=== PATIENT | male | born 1950 | race Caucasian/White ===

== ENCOUNTER → 2021-07-29 11:12 | Outpatient (CLI) | payer BC, SELFPAY ==
[2021-07-29 12:26] LABS: Hemoglobin A1C% w Est Avg Glu 5.5 % (4.0-6.0)
[2021-07-29 12:41] LABS: Alanine Aminotransferase 25 IU/L (<50); Albumin 4.2 g/dL (3.5-5.0); Albumin Globulin Ratio 1.6 (1.0-2.8); Alkaline Phosphatase 48 U/L (38-126); Aspartate Aminotransferase 30 IU/L (17-59); BUN Creatinine Ratio 17.2 (6-22); Bilirubin Total 0.5 mg/dL (0.2-1.3); Blood Urea Nitrogen 20 mg/dL (9-20); Calcium 10.5 mg/dL (8.4-10.2); Carbon Dioxide 22 mmol/L (22-32); Chloride 104 mmol/L (98-107); Cholesterol 275 mg/dL (140-199); Estimated Glomerular Filt Rate > 60.0 mL/min (>60); Globulin 2.7 g/dL (1.7-4.1); Glucose 101 mg/dL (80-110); HDL Cholesterol 57 mg/dL (40-60); HEMOLYSIS < 15 (0-50); Sodium 137 mmol/L (137-145); Total Protein 6.9 g/dL (6.3-8.2); Triglycerides 420 mg/dL (35-150); Uric Acid 5.6 mg/dL (3.5-8.5)
[2021-07-29 13:15] LABS: TSH w/ Reflex to FT4 2.26 uIU/mL (0.47-4.68)
[2021-08-03 09:42] LABS: Percent Free Testosterone 3.43 % (1.50-4.20); Testosterone Free 9.15 ng/dL (5.00-21.00); Testosterone Total 266.9 ng/dL (264.0-916.0)
== END ==
PROVIDERS: PCP Internal Medicine; Referring Provider Internal Medicine; Visit Provider Internal Medicine
DX: E29.1 Testicular hypofunction (principal); I10 Essential (primary) hypertension; I48.0 Paroxysmal atrial fibrillation; M1A.9XX0 Chronic gout, unspecified, without tophus (tophi); R73.02 Impaired glucose tolerance (oral)
CPT/HCPCS: 36415; 80053; 80061; 83036; 84402; 84403; 84443; 84550

== ENCOUNTER → 2021-08-03 12:26 | Outpatient (CLI) | payer BC, SELFPAY ==
--- NOTE | 2021-08-03 12:27 | DI.US.S_ITS ---
PROCEDURE: US RETROPERITONEAL COMP INDICATIONS: AAA TECHNIQUE: Real-time scanning was performed of the aorta and proximal iliac arteries. COMPARISON: None. FINDINGS: Aneurysmal dilatation of the mid abdominal aorta measuring 48 mm is present. Bilateral common iliac arteries measure 10 mm diameter. IMPRESSION: 48 mm diameter abdominal aortic aneurysm. Dictated by: Maxine Monterroso M.D. on 08/03/2021 at 15:31 Approved by: Maxine Monterroso M.D. on 08/03/2021 at 15:31
== END ==
PROVIDERS: PCP Internal Medicine; Referring Provider Internal Medicine; Visit Provider Internal Medicine
DX: I71.4 Abdominal aortic aneurysm, without rupture (principal)
CPT/HCPCS: 76770

== ENCOUNTER → 2021-08-26 11:46 | Outpatient (CLI) | payer BC, SELFPAY ==
[2021-08-26 12:29] LABS: Blood Urea Nitrogen 19 mg/dL (9-20); Estimated Glomerular Filt Rate > 60.0 mL/min (>60)
== END ==
PROVIDERS: PCP Internal Medicine; Referring Provider Internal Medicine; Visit Provider Internal Medicine
DX: Z01.818 Encounter for other preprocedural examination (principal)
CPT/HCPCS: 36415; 82565; 84520

== ENCOUNTER → 2021-09-05 08:24 | Outpatient (CLI) | payer MEDICARE, SELFPAY ==
--- NOTE | 2021-09-05 09:12 | DI.CT.S_ITS ---
PROCEDURE: CT ABDOMEN PELVIS W CON INDICATIONS: AAA TECHNIQUE: After the administration of oral and IV contrast, axial sections were acquired from the lung bases to the pubic symphysis. Coronal and sagittal reformats were performed. For radiation dose reduction, the following was used: automated exposure control, adjustment of mA and/or kV according to patient size. COMPARISON: , , US RETROPERITONEAL COMP, 08/03/2021, 12:52. FINDINGS: Image quality: There is metallic streak artifact from patient's left hip prosthesis. Lung bases: There is minimal dependent atelectasis. Heart: Heart is normal in size. ABDOMEN: Liver: There is diffuse hypoattenuation of the liver consistent with fatty infiltration. Mild relative sparing is present along the gallbladder fossa. Gallbladder: Within normal limits without gallstones. Biliary ducts: No biliary ductal dilatation. Pancreas: Unremarkable. Spleen: Normal in size. Adrenal Glands: No adrenal nodules. Kidneys and Ureters: No hydronephrosis. There is nonspecific perinephric stranding bilaterally. The kidneys are lobulated in contour. There are small simple appearing cysts in the kidneys. Stomach and Bowel: Stomach, small bowel loops, and colon are normal in caliber and wall thickness. The appendix is normal in appearance. There is colonic diverticulosis without acute diverticulitis. Moderate stool distention is present within the rectum which may reflect constipation or mild impaction. Peritoneum: No abnormal intraperitoneal fluid. No free air. Ventral Wall: No hernia. Abdominal Nodes: No retroperitoneal or mesenteric adenopathy by size criteria. Vessels: There is fusiform aneurysmal dilatation of the infrarenal abdominal aorta which measures up to 5.2 cm in anteroposterior dimension. There is mild eccentric thrombus within the aneurysm with mild narrowing of less than 50%. The celiac, superior mesenteric, and inferior mesenteric arteries appear grossly patent. There are single renal arteries bilaterally which also appear grossly patent. There is moderate scattered atherosclerotic vascular calcification. PELVIS: Pelvic Organs: Unremarkable. Bladder: Unremarkable. Pelvic Nodes: No enlarged lymph nodes. Miscellaneous: No inguinal hernias are seen. Bones: Visualized osseous structures demonstrate no suspicious focal lesions. IMPRESSION: 1. Fusiform infrarenal abdominal aortic aneurysm measuring up to 5.2 cm. Difference in size compared to recent ultrasound likely due to differences in technique. Recommend continued follow-up in 3-6 months. 2. Hepatic steatosis. 3. Colonic diverticulosis. Dictated by: Kane Reilly M.D. on 09/05/2021 at 16:36 Approved by: Kane Reilly M.D. on 09/05/2021 at 16:42
== END ==
PROVIDERS: PCP Internal Medicine; Referring Provider Internal Medicine; Visit Provider Internal Medicine
DX: I71.4 Abdominal aortic aneurysm, without rupture (principal); K57.90 Diverticulosis of intestine, part unspecified, without perforation or abscess without bleeding; K76.0 Fatty (change of) liver, not elsewhere classified
CPT/HCPCS: 74177

== ENCOUNTER → 2021-09-08 11:53 | Outpatient (CLI) | payer MEDICARE, SELFPAY ==
--- NOTE | 2021-09-08 11:54 | DI.US.S_ITS ---
PROCEDURE: US PERIPH VENOUS LOW EXTREM LT INDICATIONS: ANKLE EDEMA TECHNIQUE: Real-time imaging, as well as color and pulse Doppler interrogation, were performed of the lower extremity deep veins from the inguinal ligament to the popliteal fossa. COMPARISON: None. FINDINGS: The common femoral, femoral and popliteal veins are normally compressible, and free of intraluminal thrombus. Color and pulse Doppler demonstrate normal phasic intraluminal flow. There is normal augmentation response to distal compression maneuver. IMPRESSION: No evidence of deep vein thrombosis involving the left lower extremity. Dictated by: Elle Graves MD, PhD on 09/08/2021 at 12:29 Approved by: Elle Graves MD, PhD on 09/08/2021 at 12:29
== END ==
PROVIDERS: PCP Internal Medicine; Referring Provider Internal Medicine; Visit Provider Internal Medicine
DX: M79.89 Other specified soft tissue disorders (principal)
CPT/HCPCS: 93971

== ENCOUNTER 2021-12-01 12:37 | Emergency (ER) | payer MEDICARE, SELFPAY ==
[2021-12-01] VITALS (15 sets, daily range): BP systolic 136–218; BP diastolic 62–98; PULSE 60–69; RESP 16–30; TEMP 36.6; O2SAT 93–99; BMI 32.5
--- NOTE | 2021-12-01 12:57 | DI.RAD.S_ITS ---
PROCEDURE: XR CHEST 1V INDICATIONS: chest pain TECHNIQUE: One view of the chest was acquired. COMPARISON: None. FINDINGS: Surgical changes and devices: None. Lungs and pleura: Lungs are clear. No pleural effusions or pneumothorax. Mediastinum: Mediastinal contours appear normal. Heart size is normal. The aorta is tortuous. Bones and chest wall: No suspicious bony lesions. Overlying soft tissues appear unremarkable. IMPRESSION: No acute cardiopulmonary abnormality Dictated by: Matias Colin M.D. on 12/01/2021 at 13:44 Approved by: Matias Colin M.D. on 12/01/2021 at 13:44
[2021-12-01 13:04] LABS: Add Manual Diff / Slide Review NO; Basophils Absolute Auto 100 /uL (0-100); Basophils Percent Auto 1.4 % (0-2); Eosinophils Absolute Auto 400 /uL (0-450); Eosinophils Percent Auto 5.2 % (2-4); Hematocrit 39.4 % (41-53); Hemoglobin 13.4 g/dL (13.5-17.5); Lymphocytes Absolute Auto 2500 /uL (1100-4500); Lymphocytes Percent Auto 30.4 % (25-40); Mean Corpuscular Hemoglobin 31.3 PG (26-34); Mean Corpuscular Volume 92.1 fL (80-100); Monocytes Absolute Auto 700 /uL (0-900); Monocytes Percent Auto 8.5 % (3-14); Neutrophils Absolute Auto 4500 /uL (1500-7000); Neutrophils Percent Auto 54.5 % (50-75); Platelet Count 283 X10^3/uL (150-400); Red Blood Cell Count 4.27 X10^6/uL (4.5-5.9); Red Cell Distribution Width 13.3 % (11.6-14.8); White Blood Cell Count 8.3 X10^3/uL (4.5-11.0)
[2021-12-01 13:09] LABS: Alanine Aminotransferase 34 IU/L (<50); Albumin 4.8 g/dL (3.5-5.0); Albumin Globulin Ratio 1.3 (1.0-2.8); Alkaline Phosphatase 47 U/L (38-126); Aspartate Aminotransferase 43 IU/L (17-59); BUN Creatinine Ratio 21.9 (6-22); Bilirubin Total 0.5 mg/dL (0.2-1.3); Blood Urea Nitrogen 35 mg/dL (9-20); Calcium 10.2 mg/dL (8.4-10.2); Carbon Dioxide 26 mmol/L (22-32); Chloride 105 mmol/L (98-107); Creatine Kinase 155 U/L (55-170); Estimated Glomerular Filt Rate 43.1 mL/min (>60); Globulin 3.6 g/dL (1.7-4.1); Glucose 118 mg/dL (80-110); HEMOLYSIS < 15 (0-50); Lipase 103 U/L (23-300); Magnesium 1.8 mg/dL (1.6-2.3); Potassium 4.6 mmol/L (3.4-5.1); Sodium 139 mmol/L (137-145); Total Protein 8.4 g/dL (6.3-8.2)
[2021-12-01 13:21] LABS: Troponin I < 0.012 ng/mL (0.01-0.034)
[2021-12-01 13:24] LABS: CKMB % Relative Index 1.5 % (1.5-5.0); Creatine Kinase MB 2.35 ng/mL (<2.37)
--- NOTE | 2021-12-01 16:13 | ED.DIZZY ---
HPI - Dizziness General Chief Complaint: Dizziness Stated Complaint: AFIB Time Seen by Provider: 12/01/21 16:12 Source: patient Mode of arrival: Ambulatory History of Present Illness HPI Narrative: Patient is a 71-year-old male who has a history of atrial fibrillation on Eliquis presenting today is a some shortness of breath. He is actually scheduled for the an aortic aneurysm repair next week at [place]. Yesterday he was walking to the mailbox which he does every day as he got very short of breath and noticed his heart rate is elevated. He called his surgeon who wanted to be sure he was not in AFib and sent him to the emergency department to be checked out. He feels fine now. He has no shortness of breath dizziness palpitations fever or chills. Related Data Home Medications Medication Instructions Recorded Confirmed amlodipine 5 mg tablet 5 mg PO DAILY tab 07/29/21 08/26/21 carvedilol 25 mg tablet 25 mg PO BID tab 07/29/21 08/26/21 digoxin 125 mcg (0.125 mg) tablet 125 mcg PO DAILY tab 07/29/21 08/26/21 famotidine 20 mg tablet 20 mg PO BID tab 07/29/21 08/26/21 fenofibrate 160 mg tablet 160 mg PO DAILY tab 07/29/21 08/26/21 flecainide 100 mg tablet 100 mg PO Q12H tab 07/29/21 08/26/21 loratadine 10 mg tablet (Claritin) 10 mg PO DAILY 07/29/21 08/26/21 metformin 500 mg tablet 500 mg PO DAILY tab 07/29/21 08/26/21 nbuvlquc-hvv-[id number] acid 300 1 tab PO DAILY 07/29/21 08/26/21 mcg-lycopene 600 mcg-lutein 300 mcg tablet (Centrum Silver Men) ramipril 10 mg capsule 10 mg PO BID cap 07/29/21 08/26/21 tamsulosin 0.4 mg capsule 0.4 mg PO QPM cap 07/29/21 08/26/21 testosterone 20.25 mg/1.25 gram 3 pump TRANSDERMAL DAILY g 07/29/21 08/26/21 (1.62 %) transdermal gel pump valacyclovir 1 gram tablet 1,000 mg PO Q12H PRN tab 07/29/21 08/26/21 cholecalciferol (vitamin D3) 25 25 mcg PO DAILY 08/26/21 08/26/21 mcg (1,000 unit) capsule ferrous sulfate 325 mg (65 mg 325 mg PO DAILY 08/26/21 08/26/21 iron) tablet Previous Rx's Medication Instructions Recorded allopurinol 300 mg tablet 300 mg PO DAILY #90 tab 10/07/21 apixaban 5 mg tablet (Eliquis) 5 mg PO BID #180 tab 10/17/21 Allergies Allergy/AdvReac Type Severity Reaction Status Date / Time azithromycin Allergy Severe Temp Verified 08/26/21 10:30 raised, nausea, severe sweating codeine Allergy Severe Temp Verified 08/26/21 10:30 raised, nausea, severe sweating atorvastatin AdvReac Intermediate Muscle Pain Verified 08/26/21 11:00 rosuvastatin AdvReac Intermediate Muscle Pain Verified 08/26/21 11:00 Review of Systems Review of Systems Narrative: GENERAL: Denies chills, fatigue, malaise, fever, sweats, travel HEENT: Denies sinus pain, ear pain, sore throat, difficulty swallowing, neck pain RESPIRATORY: Denies dyspnea, cough, wheezing, hemoptysis, sputum. CARDIOVASCULAR: See HPI GASTROINTESTINAL: Denies nausea, vomiting, abdominal pain, diarrhea, constipation, melena. : Denies dysuria, frequency, incontinence, hematuria, urinary retention, flank pain. MUSCULOSKELETAL: Denies weakness, joint pain, or bony pain SKIN: No rash, no erythema, no pruritus NEUROLOGIC: Denies weakness, dizziness, headache, numbness, change in speech, confusion PSYCHIATRIC: No concerning psychosocial issues. 12 point review of systems is negative except for those stated above and HPI Patient History Medical History (Updated 12/01/21 @ 16:34 by Surekha Jacob DO) Abdominal aortic aneurysm (~2015) Allergies Chronic gout Colon polyps (~2013) Current use of termite control servicer anticoagulation Fractures Gout Hemorrhoid (~2017) Hypertension (~1999) Hypogonadism male Impaired glucose tolerance Kidney stones Low testosterone (~2011) Mixed hyperlipidemia Paroxysmal atrial fibrillation (~2017) Skin cancer (~2005) Surgical History (Updated 07/29/21 @ 10:41 by Jeff Gupta MD) Anesthesia History of back surgery History of hip replacement (~2015) History of nasal surgery (~2003) Family History (Updated 07/28/21 @ 21:47 by Cata Ozuna) Father Cancer Grandmother Cancer Grandfather Diabetes mellitus Grandmother Tuberculosis Social History Smoking Status: Former smoker Smoking Status: Former smoker alcohol intake frequency: other Substance Use Type: does not use Exam Initial Vital Signs Initial Vital Signs: Vital Signs Temperature 97.8 F 12/01/21 12:47 Pulse Rate 69 12/01/21 12:47 Respiratory Rate 20 12/01/21 12:47 Blood Pressure 184/86 H 12/01/21 12:47 Pulse Oximetry 98 12/01/21 12:47 GENERAL: Alert well-appearing 71-year-old maleand in no acute distress. HEENT: Head atraumatic,EOMI, pupils reactive, face symmetric, moist mucous membranes CARDIOVASCULAR: Regular rate and rhythm without murmurs, rubs or gallops. RESPIRATORY: Breath sounds equal bilaterally, no wheezes rales or rhonchi. ABDOMEN: Soft, nontender. Normoactive bowel sounds all 4 quadrants. No guarding or rebound. EXTREMITIES: Normal range of motion, no clubbing or edema. Neurovascularly intact NEUROLOGICAL: Alert and oriented x4.Normal gait and speech. SKIN: Warm, dry, no laceration, no petechiae, no rashes or lesions. Course Orders Ordered: ED Orders 12/01/21 12:50 Complete Blood Count AUTO DIFF Stat Comprehensive Metabolic Panel Stat Lipase Stat Magnesium Stat Troponin & CK Cardiac Panel Stat 12/01/21 12:57 XR chest 1V Stat EKG-12 Lead Stat 12/01/21 16:29 EKG-12 Lead Stat Vital Signs Vital signs: Vital Signs - 8 hr 12/01/21 12:47 12/01/21 12:52 12/01/21 13:00 Temperature 97.8 F Pulse Rate 69 67 68 Respiratory Rate 20 20 30 H Blood Pressure 184/86 H 189/89 H Pulse Oximetry 98 99 98 12/01/21 13:30 12/01/21 13:31 12/01/21 14:00 Temperature Pulse Rate 63 62 67 Respiratory Rate 18 19 19 Blood Pressure 162/74 H Pulse Oximetry 97 97 97 12/01/21 14:01 12/01/21 14:30 12/01/21 14:31 Temperature Pulse Rate 66 60 60 Respiratory Rate 19 16 18 Blood Pressure 218/98 H 192/75 H Pulse Oximetry 93 97 97 12/01/21 15:00 12/01/21 15:01 12/01/21 15:30 Temperature Pulse Rate 62 62 60 Respiratory Rate 20 23 18 Blood Pressure 136/62 141/66 H Pulse Oximetry 97 97 98 12/01/21 16:00 12/01/21 16:30 12/01/21 16:31 Temperature Pulse Rate 64 66 63 Respiratory Rate 29 H 18 22 Blood Pressure 156/71 H 185/83 H Pulse Oximetry 97 97 97 MDM - Dizziness Lab Data Result diagrams: 12/01/21 12:50 12/01/21 12:50 Labs: Lab Results 12/01/21 12/01/21 Range/Units 12:50 12:50 WBC 8.3 (4.5-11.0) X10^3/uL RBC 4.27 L (4.5-5.9) X10^6/uL Hgb 13.4 L (13.5-17.5) g/dL Hct 39.4 L (41-53) % MCV 92.1 (80-100) fL MCH 31.3 (26-34) PG MCHC 34.0 (30-36) % RDW 13.3 (11.6-14.8) % Plt Count 283 (150-400) X10^3/uL Neut % (Auto) 54.5 (50-75) % Lymph % (Auto) 30.4 (25-40) % [place] % (Auto) 8.5 (3-14) % Eos % (Auto) 5.2 H (2-4) % Baso % (Auto) 1.4 (0-2) % Neut # (Auto) 4500 (7686-9459) /uL Lymph # (Auto) 2500 (2306-6508) /uL [place] # (Auto) 700 (0-900) /uL Eos # (Auto) 400 (0-450) /uL Baso # (Auto) 100 (0-100) /uL Sodium 139 (137-145) mmol/L Potassium 4.6 (3.4-5.1) mmol/L Chloride 105 (98-107) mmol/L Carbon Dioxide 26 (22-32) mmol/L BUN 35 H (9-20) mg/dL Creatinine 1.60 H (0.66-1.25) mg/dL Estimated GFR 43.1 L (>60) mL/min BUN/Creatinine Ratio 21.9 (6-22) Glucose 118 H (80-110) mg/dL Calcium 10.2 (8.4-10.2) mg/dL Magnesium 1.8 (1.6-2.3) mg/dL Total Bilirubin 0.5 (0.2-1.3) mg/dL AST 43 (17-59) IU/L ALT 34 (<50) IU/L Alkaline Phosphatase 47 (38-126) U/L Total Creatine Kinase 155 (55-170) U/L CK-MB (CK-2) 2.35 (<2.37) ng/mL CK-MB (CK-2) Rel Index 1.5 (1.5-5.0) % Troponin I < 0.012 (0.01-0.034) ng/mL Total Protein 8.4 H (6.3-8.2) g/dL Albumin 4.8 (3.5-5.0) g/dL Globulin 3.6 (1.7-4.1) g/dL Albumin/Globulin Ratio 1.3 (1.0-2.8) Lipase 103 (23-300) U/L Imaging Data Chest x-ray: Radiologist's Impression: PROCEDURE:? XR CHEST 1V ? INDICATIONS:? chest pain ? TECHNIQUE:? One view of the chest was acquired.? ? COMPARISON:? None. ? FINDINGS:? ? Surgical changes and devices:? None.? ? Lungs and pleura:? Lungs are clear.? No pleural effusions or pneumothorax.? ? Mediastinum:? Mediastinal contours appear normal.? Heart size is normal.? The aorta is tortuous. ? Bones and chest wall:? No suspicious bony lesions.? Overlying soft tissues appear unremarkable.? ? IMPRESSION:? No acute cardiopulmonary abnormality ? ? Dictated by: Matias Colin M.D. on 12/01/2021 at 13:44? ECG Data Interpretation: Sinus rhythm rate [address] changes no priors to compare EKG 2. Sinus rhythm rate 59 HI interval 280 QRS 90 QTC 397, actually does have some slight ST depression in lead 3 only with T-wave inversion different from previous MDM Narrative Medical decision making narrative: The patient overall appears well. He is in a sinus bradycardic rhythm. There is no sign of atrial fibrillation. No need for any cardioversion or intervention at this time. His at this time recommend outpatient follow-up with his vascular surgeon. He has no chest pain dizziness or syncope. No need for further imaging. His aneurysm is being repaired next week. Discharge Plan Departure Patient Disposition: Home Clinical Impression: Worried well Instructions: Atrial Fibrillation Activity Restrictions/Additional Instructions: *You have been diagnosed without atrial fibrillation *What to do: At this time your found not to be in atrial fibrillation. Blood work and everything are reassuring. *Continue to take medications as directed *Follow up with your primary care provider in 2-3 days or call [phone] *Return to ER if you should have increased shortness of breath palpitations dizziness lightheadedness or any new, worsening or concerning symptoms Prescriptions: No Action allopurinol 300 mg tablet 300 mg PO DAILY Qty: 90 3RF Eliquis 5 mg tablet 5 mg PO BID Qty: 180 3RF Label Comments: TAKE 1 TABLET BY MOUTH TWICE DAILY tamsulosin 0.4 mg capsule 0.4 mg PO QPM 0RF Label Comments: TAKE 1 CAPSULE BY MOUTH 30 MINUTES AFTER DINNER EVERY DAY fenofibrate 160 mg tablet 160 mg PO DAILY 0RF Label Comments: TAKE 1 TABLET BY MOUTH EVERY MORNING testosterone 20.25 mg/1.25 gram (1.62 %) gel in metered-dose pump 3 pump transdermal DAILY 0RF Label Comments: APPLY 3 PUMPS TO SKIN ONCE DAILY flecainide 100 mg tablet 100 mg PO Q12H 0RF Label Comments: TAKE 1 TABLET BY MOUTH EVERY 12 HOURS amlodipine 5 mg tablet 5 mg PO DAILY 0RF Label Comments: TAKE 1 TABLET BY MOUTH EVERY DAY digoxin 125 mcg (0.125 mg) tablet 125 mcg PO DAILY 0RF Label Comments: TAKE 1 TABLET BY MOUTH EVERY DAY famotidine 20 mg tablet 20 mg PO BID 0RF Label Comments: TAKE 1 TABLET BY MOUTH TWICE DAILY ramipril 10 mg capsule 10 mg PO BID 0RF Label Comments: TAKE 1 CAPSULE BY MOUTH EVERY 12 HOURS metformin 500 mg tablet 500 mg PO DAILY 0RF valacyclovir 1 gram tablet 1,000 mg PO Q12H PRN0RF Label Comments: TAKE 1 TABLET BY MOUTH EVERY 12 HOURS FOR 3 DAYS Rx Instructions: Q12 HRS FOR 3 DAYS - PRN carvedilol 25 mg tablet 25 mg PO BID 0RF Label Comments: TAKE 1 TABLET BY MOUTH TWICE DAILY Centrum Silver Men 300-600-300 mcg tablet 1 tab PO DAILY 0RF loratadine [Claritin] 10 mg tablet 10 mg PO DAILY 0RF ferrous sulfate 325 mg (65 mg iron) tablet 325 mg PO DAILY 0RF cholecalciferol (vitamin D3) 25 mcg (1,000 unit) capsule 25 mcg PO DAILY 0RF Referrals: Jeff Gupta MD [Primary Care Provider] -
== END 2021-12-01 16:55 | disposition home or self-care (01) ==
PROVIDERS: Emergency Provider Emergency Medicine; PCP Internal Medicine
DX: Z71.1 Person with feared health complaint in whom no diagnosis is made (principal); Z87.891 Personal history of nicotine dependence
CPT/HCPCS: 36415; 71045; 80053; 82550; 82553; 83690; 83735; 84484; 85025; 93005; 93010; 99284

== ENCOUNTER → 2022-03-03 08:34 | Outpatient (CLI) | payer MEDICARE, SELFPAY ==
[2022-03-03 10:46] LABS: Alanine Aminotransferase 37 IU/L (<50); Albumin 4.2 g/dL (3.5-5.0); Albumin Globulin Ratio 1.4 (1.0-2.8); Alkaline Phosphatase 45 U/L (38-126); Aspartate Aminotransferase 46 IU/L (17-59); BUN Creatinine Ratio 17.4 (6-22); Bilirubin Total 0.4 mg/dL (0.2-1.3); Blood Urea Nitrogen 19 mg/dL (9-20); Calcium 9.6 mg/dL (8.4-10.2); Carbon Dioxide 23 mmol/L (22-32); Chloride 108 mmol/L (98-107); Cholesterol 317 mg/dL (140-199); Estimated Glomerular Filt Rate > 60 mL/min (>60); Globulin 3.1 g/dL (1.7-4.1); Glucose 121 mg/dL (80-110); HDL Cholesterol 48 mg/dL (40-60); HEMOLYSIS < 15 (0-50); Sodium 137 mmol/L (137-145); Total Protein 7.3 g/dL (6.3-8.2); Triglycerides 512 mg/dL (35-150)
== END ==
PROVIDERS: PCP Internal Medicine; Referring Provider Internal Medicine; Visit Provider Internal Medicine
DX: R73.02 Impaired glucose tolerance (oral) (principal); I10 Essential (primary) hypertension; E78.2 Mixed hyperlipidemia; I48.0 Paroxysmal atrial fibrillation; Z79.01 Long term (current) use of anticoagulants
CPT/HCPCS: 36415; 80053; 80061; 83036

== ENCOUNTER → 2022-03-30 13:21 | Outpatient (CLI) | payer MEDICARE, SELFPAY ==
[2022-03-30 14:53] LABS: BUN Creatinine Ratio 20.1 (6-22); Blood Urea Nitrogen 30 mg/dL (9-20); Calcium 9.5 mg/dL (8.4-10.2); Carbon Dioxide 22 mmol/L (22-32); Chloride 106 mmol/L (98-107); Estimated Glomerular Filt Rate 50 mL/min (>60); Glucose 86 mg/dL (80-110); HEMOLYSIS < 15 (0-50); Potassium 5.2 mmol/L (3.4-5.1); Sodium 139 mmol/L (137-145)
== END ==
PROVIDERS: PCP Internal Medicine; Referring Provider Internal Medicine Cardiovascular Disease; Visit Provider Internal Medicine Cardiovascular Disease
DX: I48.0 Paroxysmal atrial fibrillation (principal)
CPT/HCPCS: 36415; 80048

== ENCOUNTER → 2022-05-25 10:22 | Outpatient (CLI) | payer MEDICARE, SELFPAY ==
[2022-05-25 12:35] LABS: BUN Creatinine Ratio 19.7 (6-22); Blood Urea Nitrogen 35 mg/dL (9-20); Calcium 9.9 mg/dL (8.4-10.2); Carbon Dioxide 23 mmol/L (22-32); Chloride 107 mmol/L (98-107); Estimated Glomerular Filt Rate 41 mL/min (>60); Glucose 117 mg/dL (80-110); HEMOLYSIS < 15 (0-50); Potassium 4.7 mmol/L (3.4-5.1); Sodium 141 mmol/L (137-145)
== END ==
PROVIDERS: PCP Internal Medicine; Referring Provider Internal Medicine Cardiovascular Disease; Visit Provider Internal Medicine Cardiovascular Disease
DX: I48.0 Paroxysmal atrial fibrillation (principal)
CPT/HCPCS: 36415; 80048

== ENCOUNTER → 2023-01-09 09:39 | Outpatient (CLI) | payer MEDICARE, SELFPAY ==
[2023-01-09 11:08] LABS: Add Manual Diff / Slide Review NO; Basophils Absolute Auto 100 /uL (0-100); Basophils Percent Auto 1.1 % (0-2); Eosinophils Absolute Auto 400 /uL (0-450); Eosinophils Percent Auto 4.8 % (2-4); Hematocrit 37.2 % (41-53); Hemoglobin 12.2 g/dL (13.5-17.5); Lymphocytes Absolute Auto 2400 /uL (1100-4500); Lymphocytes Percent Auto 32.9 % (25-40); Mean Corpuscular HGB Conc 32.7 % (30-36); Mean Corpuscular Hemoglobin 29.9 PG (26-34); Mean Corpuscular Volume 91.4 fL (80-100); Monocytes Absolute Auto 500 /uL (0-900); Monocytes Percent Auto 7.3 % (3-14); Neutrophils Absolute Auto 3900 /uL (1500-7000); Neutrophils Percent Auto 53.9 % (50-75); Platelet Count 242 X10^3/uL (150-400); Red Blood Cell Count 4.07 X10^6/uL (4.5-5.9); Red Cell Distribution Width 15.8 % (11.6-14.8); White Blood Cell Count 7.3 X10^3/uL (4.5-11.0)
[2023-01-09 11:40] LABS: Alanine Aminotransferase 22 IU/L (<50); Albumin 4.2 g/dL (3.5-5.0); Albumin Globulin Ratio 1.3 (1.0-2.8); Alkaline Phosphatase 48 U/L (38-126); Aspartate Aminotransferase 23 IU/L (17-59); BUN Creatinine Ratio 19.1 (6-22); Bilirubin Total 0.5 mg/dL (0.2-1.3); Blood Urea Nitrogen 31 mg/dL (9-20); Calcium 10.2 mg/dL (8.4-10.2); Carbon Dioxide 22 mmol/L (22-32); Chloride 106 mmol/L (98-107); Cholesterol 260 mg/dL (140-199); Estimated Glomerular Filt Rate 45 mL/min (>60); Globulin 3.2 g/dL (1.7-4.1); Glucose 105 mg/dL (80-110); HDL Cholesterol 47 mg/dL (40-60); HEMOLYSIS < 15 (0-50); LDL Cholesterol Calculated 136 mg/dL (<100); Sodium 138 mmol/L (137-145); Total Protein 7.4 g/dL (6.3-8.2); Triglycerides 386 mg/dL (35-150); Uric Acid 8.6 mg/dL (3.5-8.5)
[2023-01-09 11:49] LABS: Potassium 5.4 mmol/L (3.4-5.1)
[2023-01-09 11:52] LABS: LDL Cholesterol Direct 114 mg/dL (<100)
[2023-01-09 12:10] LABS: Prostate Specific Antigen Scrn 2.06 ng/mL (0.1-4.0)
[2023-01-10 03:10] LABS: Labcorp Hemoglobin (Hb) A1c 5.6 % (4.8-5.6)
[2023-01-16 12:08] LABS: Percent Free Testosterone 1.79 % (1.50-4.20); Testosterone Free 6.97 ng/dL (5.00-21.00); Testosterone Total 389.5 ng/dL (264.0-916.0)
== END ==
PROVIDERS: PCP Internal Medicine; Referring Provider Internal Medicine; Visit Provider Internal Medicine
DX: E29.1 Testicular hypofunction (principal); E78.2 Mixed hyperlipidemia; Z12.5 Encounter for screening for malignant neoplasm of prostate; I10 Essential (primary) hypertension; M1A.9XX0 Chronic gout, unspecified, without tophus (tophi); N18.31 Chronic kidney disease, stage 3a; R73.02 Impaired glucose tolerance (oral)
CPT/HCPCS: 80053; 80061; 83036; 83721; 84402; 84403; 84550; 85025; G0103

== ENCOUNTER → 2023-02-28 09:40 | Outpatient (CLI) | payer MEDICARE, SELFPAY | PROVIDERS: PCP Internal Medicine; Referring Provider Internal Medicine; Visit Provider Internal Medicine | DX: I48.91 Unspecified atrial fibrillation (principal); I48.92 Unspecified atrial flutter | CPT/HCPCS: 93246 ==

== ENCOUNTER → 2023-05-24 11:04 | Outpatient (CLI) | payer MEDICARE, SELFPAY ==
[2023-05-24 13:20] LABS: Alanine Aminotransferase 40 IU/L (<50); Albumin 4.3 g/dL (3.5-5.0); Albumin Globulin Ratio 1.5 (1.0-2.8); Alkaline Phosphatase 49 U/L (38-126); Aspartate Aminotransferase 40 IU/L (17-59); BUN Creatinine Ratio 15.7 (6-22); Bilirubin Total 0.5 mg/dL (0.2-1.3); Blood Urea Nitrogen 26 mg/dL (9-20); Calcium 9.9 mg/dL (8.4-10.2); Carbon Dioxide 26 mmol/L (22-32); Chloride 102 mmol/L (98-107); Estimated Glomerular Filt Rate 44 mL/min (>60); Globulin 2.8 g/dL (1.7-4.1); Glucose 95 mg/dL (80-110); HEMOLYSIS < 15 (0-50); Sodium 137 mmol/L (137-145); Total Protein 7.1 g/dL (6.3-8.2); Uric Acid 7.4 mg/dL (3.5-8.5)
== END ==
PROVIDERS: PCP Internal Medicine; Referring Provider Internal Medicine; Visit Provider Internal Medicine
DX: I10 Essential (primary) hypertension (principal); M1A.9XX0 Chronic gout, unspecified, without tophus (tophi); N18.31 Chronic kidney disease, stage 3a; R73.02 Impaired glucose tolerance (oral)
CPT/HCPCS: 36415; 80053; 84550

== ENCOUNTER → 2024-02-27 08:45 | Outpatient (CLI) | payer MEDICARE, SELFPAY ==
[2024-02-27 10:17] LABS: Add Manual Diff / Slide Review NO; Basophils Absolute Auto 100 /uL (0-100); Basophils Percent Auto 1.5 % (0-2); Eosinophils Absolute Auto 400 /uL (0-450); Eosinophils Percent Auto 5.1 % (2-4); Hematocrit 39.6 % (41-53); Hemoglobin 13.1 g/dL (13.5-17.5); Lymphocytes Absolute Auto 1700 /uL (1100-4500); Lymphocytes Percent Auto 23.2 % (25-40); Mean Corpuscular HGB Conc 33.1 % (30-36); Mean Corpuscular Volume 93.5 fL (80-100); Monocytes Absolute Auto 500 /uL (0-900); Monocytes Percent Auto 7.3 % (3-14); Neutrophils Absolute Auto 4600 /uL (1500-7000); Neutrophils Percent Auto 62.9 % (50-75); Platelet Count 256 X10^3/uL (150-400); Red Blood Cell Count 4.23 X10^6/uL (4.5-5.9); Red Cell Distribution Width 14.7 % (11.6-14.8); White Blood Cell Count 7.3 X10^3/uL (4.5-11.0)
[2024-02-27 10:29] LABS: Hemoglobin A1C% w Est Avg Glu 5.3 % (4.0-6.0)
[2024-02-27 11:01] LABS: Alanine Aminotransferase 17 IU/L (<50); Albumin 4.6 g/dL (3.5-5.0); Albumin Globulin Ratio 1.7 (1.0-2.8); Alkaline Phosphatase 46 U/L (38-126); Aspartate Aminotransferase 24 IU/L (17-59); Bilirubin Total 0.7 mg/dL (0.2-1.3); Blood Urea Nitrogen 51 mg/dL (9-20); Calcium 9.8 mg/dL (8.4-10.2); Carbon Dioxide 24 mmol/L (22-32); Chloride 107 mmol/L (98-107); Cholesterol 268 mg/dL (140-199); Estimated Glomerular Filt Rate 23 mL/min (>60); Globulin 2.7 g/dL (1.7-4.1); Glucose 107 mg/dL (80-110); HDL Cholesterol 54 mg/dL (40-60); HEMOLYSIS < 15 (0-50); LDL Cholesterol Calculated 148 mg/dL (<100); Sodium 139 mmol/L (137-145); Total Protein 7.3 g/dL (6.3-8.2); Triglycerides 328 mg/dL (35-150); Uric Acid 8.2 mg/dL (3.5-8.5)
[2024-02-27 11:06] LABS: Potassium 5.5 mmol/L (3.4-5.1)
== END ==
PROVIDERS: PCP Internal Medicine; Referring Provider Internal Medicine; Visit Provider Internal Medicine
DX: I48.0 Paroxysmal atrial fibrillation (principal); R73.02 Impaired glucose tolerance (oral); E78.2 Mixed hyperlipidemia; I10 Essential (primary) hypertension; N18.31 Chronic kidney disease, stage 3a; M1A.9XX0 Chronic gout, unspecified, without tophus (tophi)
CPT/HCPCS: 36415; 80053; 80061; 83036; 84550; 85025

== ENCOUNTER → 2024-07-30 08:25 | Outpatient (CLI) | payer OTHER, SELFPAY ==
[2024-07-30 09:06] LABS: Add Manual Diff / Slide Review NO; Basophils Absolute Auto 100 /uL (0-100); Basophils Percent Auto 1.7 % (0-2); Eosinophils Absolute Auto 700 /uL (0-450); Eosinophils Percent Auto 9.4 % (2-4); Hematocrit 37.1 % (41-53); Hemoglobin 12.5 g/dL (13.5-17.5); Lymphocytes Absolute Auto 1500 /uL (1100-4500); Lymphocytes Percent Auto 18.7 % (25-40); Mean Corpuscular HGB Conc 33.7 % (30-36); Mean Corpuscular Hemoglobin 32.2 PG (26-34); Mean Corpuscular Volume 95.5 fL (80-100); Monocytes Absolute Auto 700 /uL (0-900); Monocytes Percent Auto 8.4 % (3-14); Neutrophils Absolute Auto 4900 /uL (1500-7000); Neutrophils Percent Auto 61.8 % (50-75); Platelet Count 241 X10^3/uL (150-400); Red Blood Cell Count 3.89 X10^6/uL (4.5-5.9); White Blood Cell Count 7.8 X10^3/uL (4.5-11.0)
[2024-07-30 09:15] LABS: Hemoglobin A1C% w Est Avg Glu 5.5 % (4.0-6.0)
[2024-07-30 09:33] LABS: Alanine Aminotransferase 19 IU/L (<50); Albumin Globulin Ratio 1.6 (1.0-2.8); Alkaline Phosphatase 46 U/L (38-126); Aspartate Aminotransferase 22 IU/L (17-59); Bilirubin Total 0.5 mg/dL (0.2-1.3); Blood Urea Nitrogen 32 mg/dL (9-20); Calcium 10.2 mg/dL (8.4-10.2); Carbon Dioxide 25 mmol/L (22-32); Chloride 102 mmol/L (98-107); Cholesterol 226 mg/dL (140-199); Estimated Glomerular Filt Rate 32 mL/min (>60); Globulin 2.5 g/dL (1.7-4.1); Glucose 118 mg/dL (80-110); HDL Cholesterol 49 mg/dL (40-60); HEMOLYSIS < 15 (0-50); LDL Cholesterol Calculated 120 mg/dL (<100); Magnesium 1.3 mg/dL (1.6-2.3); Potassium 5.1 mmol/L (3.4-5.1); Sodium 135 mmol/L (137-145); Total Protein 6.5 g/dL (6.3-8.2); Triglycerides 283 mg/dL (35-150); Uric Acid 7.4 mg/dL (3.5-8.5)
== END ==
PROVIDERS: PCP Internal Medicine; Referring Provider Internal Medicine; Visit Provider Internal Medicine
DX: R73.02 Impaired glucose tolerance (oral) (principal); E78.2 Mixed hyperlipidemia; N18.31 Chronic kidney disease, stage 3a; M1A.9XX0 Chronic gout, unspecified, without tophus (tophi); I12.9 Hypertensive chronic kidney disease with stage 1 through stage 4 chronic kidney disease, or unspecified chronic kidney disease
CPT/HCPCS: 36415; 80053; 80061; 83036; 83735; 84550; 85025

== ENCOUNTER → 2025-02-18 07:33 | Outpatient (CLI) | payer OTHER, SELFPAY ==
[2025-02-18 08:20] LABS: Add Manual Diff / Slide Review NO; Basophils Absolute Auto 100 /uL (0-100); Basophils Percent Auto 1.2 % (0-2); Eosinophils Absolute Auto 300 /uL (0-450); Eosinophils Percent Auto 4.3 % (2-4); Hematocrit 41.9 % (41-53); Hemoglobin 14.1 g/dL (13.5-17.5); Lymphocytes Absolute Auto 1400 /uL (1100-4500); Lymphocytes Percent Auto 22.4 % (25-40); Mean Corpuscular HGB Conc 33.7 % (30-36); Mean Corpuscular Hemoglobin 32.1 PG (26-34); Mean Corpuscular Volume 95.3 fL (80-100); Monocytes Absolute Auto 500 /uL (0-900); Neutrophils Absolute Auto 4000 /uL (1500-7000); Neutrophils Percent Auto 64.1 % (50-75); Platelet Count 264 X10^3/uL (150-400); Red Blood Cell Count 4.39 X10^6/uL (4.5-5.9); Red Cell Distribution Width 14.5 % (11.6-14.8); White Blood Cell Count 6.3 X10^3/uL (4.5-11.0)
[2025-02-18 08:49] LABS: Alanine Aminotransferase 21 IU/L (<50); Albumin 4.3 g/dL (3.5-5.0); Albumin Globulin Ratio 1.6 (1.0-2.8); Alkaline Phosphatase 46 U/L (38-126); Aspartate Aminotransferase 28 IU/L (17-59); BUN Creatinine Ratio 15.4 (6-22); Bilirubin Total 0.5 mg/dL (0.2-1.3); Blood Urea Nitrogen 28 mg/dL (9-20); Calcium 9.7 mg/dL (8.4-10.2); Carbon Dioxide 24 mmol/L (22-32); Chloride 105 mmol/L (98-107); Cholesterol 228 mg/dL (140-199); Estimated Glomerular Filt Rate 39 mL/min (>60); Globulin 2.7 g/dL (1.7-4.1); Glucose 114 mg/dL (70-99); HDL Cholesterol 42 mg/dL (40-60); HEMOLYSIS < 15 (0-50); LDL Cholesterol Calculated 118 mg/dL (<100); Potassium 5.2 mmol/L (3.4-5.1); Sodium 138 mmol/L (137-145); Triglycerides 341 mg/dL (35-150); Uric Acid 7.1 mg/dL (3.5-8.5)
[2025-02-18 09:00] LABS: LDL Cholesterol Direct 108 mg/dL (<100)
[2025-02-23 12:11] LABS: Percent Free Testosterone 3.66 % (1.50-4.20); Testosterone Free 16.46 ng/dL (5.00-21.00); Testosterone Total 449.8 ng/dL (264.0-916.0)
== END ==
PROVIDERS: PCP Internal Medicine; Referring Provider Internal Medicine Cardiovascular Disease; Visit Provider Internal Medicine Cardiovascular Disease
DX: I48.91 Unspecified atrial fibrillation (principal); I10 Essential (primary) hypertension; I48.92 Unspecified atrial flutter; I48.0 Paroxysmal atrial fibrillation; E29.1 Testicular hypofunction; M1A.9XX0 Chronic gout, unspecified, without tophus (tophi); E78.2 Mixed hyperlipidemia; N18.31 Chronic kidney disease, stage 3a; Z79.01 Long term (current) use of anticoagulants
CPT/HCPCS: 36415; 80053; 80061; 83721; 84402; 84403; 84550; 85025

== ENCOUNTER → 2025-06-03 08:00 | Outpatient (CLI) | payer OTHER, SELFPAY ==
[2025-06-03 08:48] LABS: Add Manual Diff / Slide Review NO; Hematocrit 42.3 % (41-53); Hemoglobin 13.9 g/dL (13.5-17.5); Lymphocytes Absolute Auto 1200 /uL (1100-4500); Mean Corpuscular HGB Conc 32.9 % (30-36); Mean Corpuscular Hemoglobin 31.4 PG (26-34); Mean Corpuscular Volume 95.6 fL (80-100); Platelet Count 252 X10^3/uL (150-400)
[2025-06-03 09:03] LABS: Hemoglobin A1C% w Est Avg Glu 5.5 % (4.0-6.0)
[2025-06-03 09:46] LABS: Thyroid Stimulating Hormone 3.85 uIU/mL (0.47-4.68)
[2025-06-03 10:00] LABS: Alanine Aminotransferase 19 IU/L (<50); Albumin 4.2 g/dL (3.5-5.0); Albumin Globulin Ratio 1.4 (1.0-2.8); Alkaline Phosphatase 43 U/L (38-126); Blood Urea Nitrogen 33 mg/dL (9-20); Calcium 9.6 mg/dL (8.4-10.2); Carbon Dioxide 19 mmol/L (22-32); Chloride 106 mmol/L (98-107); Cholesterol 230 mg/dL (140-199); Estimated Glomerular Filt Rate 37 mL/min (>60); Globulin 3.0 g/dL (1.7-4.1); Glucose 101 mg/dL (70-99); HDL Cholesterol 51 mg/dL (40-60); HEMOLYSIS < 15 (0-50); Potassium 4.8 mmol/L (3.4-5.1); Sodium 138 mmol/L (137-145); Total Protein 7.2 g/dL (6.3-8.2); Triglycerides 312 mg/dL (35-150)
== END ==
PROVIDERS: PCP Internal Medicine; Referring Provider Internal Medicine
DX: E78.2 Mixed hyperlipidemia (principal); I10 Essential (primary) hypertension; I48.0 Paroxysmal atrial fibrillation
CPT/HCPCS: 36415; 80053; 80061; 83036; 84443; 85025

== ENCOUNTER → 2025-07-29 15:03 | Outpatient (CLI) | payer OTHER, SELFPAY ==
[2025-07-29 19:27] LABS: Influenza A - CEPHEID Flu A NEGATIVE (NEGATIVE); Influenza B - CEPHEID Flu B NEGATIVE (NEGATIVE)
[2025-07-29 19:39] LABS: COVID-19 CEPHEID 4-PLEX PCR Negative (Negative)
== END ==
PROVIDERS: PCP Internal Medicine; Visit Provider Physician Assistant
DX: R05.1 Acute cough (principal)
CPT/HCPCS: 87637